=== PATIENT | female | born 1930 | race Caucasian/White ===

== ENCOUNTER → 2016-12-10 | Outpatient (CLI) | payer MEDICARE, BC | END | disposition home or self-care (01) | LOC: PCVCCLINIC 11:29 | PROVIDERS: ATTEND Internal Medicine Cardiovascular Disease | DX: I35.0 Nonrheumatic aortic (valve) stenosis (principal); I10 Essential (primary) hypertension; E78.00 Pure hypercholesterolemia, unspecified; K58.8 Other irritable bowel syndrome; Z87.891 Personal history of nicotine dependence | CPT/HCPCS: 93005; G0463 ==

== ENCOUNTER → 2017-07-26 | Outpatient (CLI) | payer MEDICARE, BC ==
--- NOTE | 2017-07-26 14:25 | PCVCIMAG ---
APPROVED REPORT Study performed: 07/26/2017 09:17:33 EXAM: Comprehensive 2D, Doppler, and color-flow Echocardiogram Patient Location: Echo lab Room #: 2Status: routine BSA: 1.69 HR: 56 bpmBP: 162/78 mmHg Rhythm: NSR Other Information Study Quality: Adequate Risk Factors: Cardiac Risk Factors: HTN Indications Aortic Valve Disease Hypertension/HDD 2D Dimensions LVEF(%): 77.22 (>50%) IVSd: 6.78 (7-11mm)LVOT Diam: 19.65 (18-24mm) LVDd: 45.36 mm PWd: 7.23 (7-11mm)Ascending Ao: 21.64 (22-36mm) LVDs: 24.61 (25-40mm) Left Atrium: 30.30 (27-40mm) Aortic Root: 21.86 mm LV Single Plane 4CH: 67.72 % LV Single Plane 2CH: 67.00 %Payton's LVEF: 67.36 % Biplane EF: 67.8 % Volumes Left Atrial Volume (Systole) Single Plane 4CH: 46.02 mLSingle Plane 2CH: 40.43 mL Biplane LA Volume: 46.00 mLLA ESV Index: 27.00 mL/m2 Aortic Valve AoV Peak Vince.: 3.94 m/s AO Peak Gr.: 66.44 mmHgLVOT Max P.21 mmHg AO Mean Gr.: 41.07 mmHgLVOT Mean P.63 mmHg AO V2 Mean: 3.12 m/sLVOT Max V: 1.20 m/s AO V2 VTI: 112.39 cmLVOT Mean V: 0.91 m/s ELIZABETH (VTI): 0.92 [id number] V1 VTI: 34.06 cm ELIZABETH Vmax: 0.92 cm2 SV (LVOT): 103.25 mL Mitral Valve E/A Ratio: 0.8 MV Decel. Time: 212.27 ms MV E Max Vince.: 0.92 m/s MV A Vince.: 1.17 m/s IVRT: 103.81 ms TDI E/Lateral E': 18.40E/Medial E': 30.67 Medial E' Vince.: 0.03 m/s Lateral E' Vince.: 0.05 m/s Pulmonary Valve PV Peak Vince.: 1.52 m/sPV Peak Gr.: 9.24 mmHg Pulmonary Vein P Vein S: 0.66 m/sP Vein A: 0.27 m/s P Vein D: 0.47 m/sP Vein A Dur.: 90.0 msec P Vein S/D Ratio: 1.40 Tricuspid Valve TR Peak Vince.: 2.44 m/s TR Peak Gr.: 23.89 mmHg TV Vmax: 0.54 m/sPA Pressure: 31.00 mmHg Left Ventricle The left ventricle is normal size. There is normal LV segmental wall motion. There is normal left ventricular wall thickness. Unable to assess EF, due to poor quality of echocardiogram. LVEF is 65-70%. Grade I - abnormal relaxation pattern. Left atrial pressure is elevated. Right Ventricle The right ventricle is normal size. The right ventricular systolic function is normal. Atria The left atrium size is normal. The right atrium size is normal. Aortic Valve Aortic valve is trileaflet. Aortic valve leaflets are heavily sclerotic with severely decreased opening. No aortic regurgitation is present. Severe aortic stenosis. Highest mean aortic valve gradient is 41mmHg. Peak aortic valve gradient is 62 mmHg. Calculated ELIZABETH by the continuity equation is 0.9 cm2. Mitral Valve The mitral valve is normal in structure. Trace mitral regurgitation. No evidence of mitral valve stenosis. Tricuspid Valve The tricuspid valve is normal in structure. Trace tricuspid regurgitation with a PA pressure of 31 mmHg. Pulmonic Valve The pulmonary valve is normal in structure. There is no pulmonic valvular regurgitation. Great Vessels The aortic root is normal in size. The ascending aorta is normal in size. IVC is normal in size and collapses with >50% inspiration Pericardium There is no pericardial effusion. There is no pleural effusion. <Conclusion> The left ventricle is normal size. LVEF is 65-70%. Grade I - abnormal relaxation pattern. Left atrial pressure is elevated. The right ventricle is normal size. The left atrium size is normal. Aortic valve is trileaflet. Aortic valve leaflets are heavily sclerotic with severely decreased opening. Severe aortic stenosis. Highest mean aortic valve gradient is 41mmHg. Peak aortic valve gradient is 62 mmHg. Calculated ELIZABETH by the continuity equation is 0.9 cm2. Trace mitral regurgitation. Trace tricuspid regurgitation with a PA pressure of 31 mmHg. There is no pericardial effusion.
== END | disposition home or self-care (01) ==
LOC: PCVCIMAG 09:06
PROVIDERS: ATTEND Internal Medicine Cardiovascular Disease
DX: I10 Essential (primary) hypertension (principal); I35.0 Nonrheumatic aortic (valve) stenosis; E78.00 Pure hypercholesterolemia, unspecified; Z87.891 Personal history of nicotine dependence; Z79.899 Other long term (current) drug therapy
CPT/HCPCS: 93005; 93306; G0463

== ENCOUNTER → 2017-07-26 | Outpatient (CLI) | payer MEDICARE, BC | END | disposition home or self-care (01) | LOC: PCVCCLINIC 10:53 | PROVIDERS: ATTEND Internal Medicine Cardiovascular Disease | DX: I35.0 Nonrheumatic aortic (valve) stenosis (principal); I10 Essential (primary) hypertension; E78.00 Pure hypercholesterolemia, unspecified; R00.1 Bradycardia, unspecified; R94.31 Abnormal electrocardiogram [ECG] [EKG]; Z87.891 Personal history of nicotine dependence; Z79.899 Other long term (current) drug therapy | CPT/HCPCS: 93005; G0463 ==

== ENCOUNTER → 2018-07-25 | Outpatient (CLI) | payer MEDICARE, BC ==
--- NOTE | 2018-07-25 16:31 | PCVCIMAG ---
APPROVED REPORT Study performed: 07/25/2018 10:21:59 Exam: Stress Echocardiogram Indication: Aortic Valve Stenosis, Hyperlipidemia, Hypertension Patient Location: Echo lab Stress Nurse: Nitza Suh RN, Tracey Avendano RN Status: routine Ht: 5 ft 3 in HR: 60 bpm BP: 126/64 mmHg Rhythm: NSR Medical History Medical History: Hyperlipidemia, aortic stenosis, HTN Cardiac Risk Factors: Hyperlipidemia, HTN Previous Cardiac Procedures: none Exercise History: Physically active Physical Disabilities: Knees Procedure The patient underwent an Exercise Stress Test using the Vitaly Protocol. Blood pressure, heart rate, and EKG were monitored. An Echocardiogram was performed by garage door technician in four stages in quad fashion. At peak stress, four selected images were obtained and placed side by side with resting images for comparison. Stress Test Details Stress Test: Exercise stress testing was performed using a Vitaly protocol. HR Resting HR: 60 bpmMax Heart Rate (APMHR): 133 bpm Max HR Achieved: 110 bpmTarget HR (85% APMHR): 113 bpm % of APMHR: 82 Recovery HR: 66 bpm HR response to stress: Normal HR response to stress BP Resting BP: 126/64 mmHg Recovery BP: 152/72 mmHg BP response to stress: Normal blood pressure response to stress. ECG Resting ECG: Sinus Rhythm Stress ECG: Sinus Rhythm ST Change: Non-ischemic Arrhythmia: None Recovery ECG: Sinus Rhythm Recovery ST Change: Non-ischemic Recovery Arrhythmia: None Clinical Reason for Termination: Maximal effort Stress Symptoms: fatigue Exercise duration: 1 min 29 sec Highest Stage Achieved: Stage 1: 1.7 mph at 10% grade. Exercise capacity: 4.6 METs Overall Exercise Capacity for Age: Average Scale: Active Angina Score: None No complications. Stress ECG Conclusion The patient exercised according to the VITALY protocol for 1:27 mins; achieving a work level of 4.6 METS. The resting heart rate of 60 bpm yen to a maximum heart rate of 110 bpm. This value represent 82% of the maximal, age-predicted heart rate. The resting blood pressure of 120/80mmHg, yen to a maximum blood pressure of 152/72 mmHg. The exercise test was stopped due to fatigue . Pre-Stress Echo The resting Echocardiogram showed normal left ventricular contractility with an estimated Ejection Fraction of about 55-60%. Normal wall motion in all segments on baseline images. Post-Stress Echo The stress Echocardiogram showed normal left ventricular contractility with an estimated Ejection Fraction of about 60-65%. Normal augmentation of wall motion in all segments on post stress images. Clinical No clinical or ECG evidence for ischemia. Conclusion Clinical Response: Non-ischemic Exercise Capacity: Below Average Stress ECG Response: Non-ischemic Stress Echo Images: Non-ischemic Non-diagnostic study due to inability of the patient to achieve 85% of maximal HR. No clinical, EKG or echocardiographic evidence for ischemia. No echocardiographic evidence for exercise induced ischemia. av area .7cm2 mean grad 37mmhg <Conclusion> Non-diagnostic study due to inability of the patient to achieve 85% of maximal HR. No clinical, EKG or echocardiographic evidence for ischemia. No echocardiographic evidence for exercise induced ischemia. av area .7cm2 mean grad 37mmhg
== END | disposition home or self-care (01) ==
LOC: PCVCIMAG 10:32
PROVIDERS: ATTEND Internal Medicine Cardiovascular Disease
DX: I35.0 Nonrheumatic aortic (valve) stenosis (principal); I10 Essential (primary) hypertension; E78.00 Pure hypercholesterolemia, unspecified; E78.5 Hyperlipidemia, unspecified; Z87.891 Personal history of nicotine dependence
CPT/HCPCS: 93005; 93325; 93351; G0463